=== PATIENT | female | born 1935 | race Native Hawaiian/Other Pacific Islander ===

== ENCOUNTER → 2019-05-09 | Outpatient (CLI) | payer MEDICARE ==
--- NOTE | 2019-05-09 13:02 | CT ---
EXAMINATION TYPE: CT brain wo con DATE OF EXAM: 05/09/2019 HISTORY: Alzheimer's disease. Dimension for 5 years per patient with memory loss. CT DLP: 1183 mGycm. Automated Exposure Control for Dose Reduction was Utilized. TECHNIQUE: CT scan of the head is performed without contrast. COMPARISON: CT brain January 20, 2012 FINDINGS: There is no acute intracranial hemorrhage or midline shift identified. There is diffuse v entricular and sulcal prominence consistent with diffuse age-related cerebral atrophy. Atrophy slight ly more prominent over the bilateral frontal and temporal lobes. There is low-attenuation in the mallorie ventricular white matter consistent with chronic small vessel ischemic change. Scleral calcification both globes are seen. Visualized paranasal sinuses are clear. IMPRESSION: No acute intracranial hemorrhage or midline shift. There is mild to moderate diffuse ag e-related cerebral atrophy slightly more prominent over bilateral frontal and temporal lobes and mode rate chronic small vessel ischemic change identified. There is progression from 2012 CT noted.
== END | disposition home or self-care (01) ==
LOC: RADCTMAIN 12:04
PROVIDERS: ATTEND Internal Medicine
DX: G31.9 Degenerative disease of nervous system, unspecified (principal); I67.82 Cerebral ischemia; G30.9 Alzheimer's disease, unspecified
CPT/HCPCS: 70450

== ENCOUNTER → 2019-05-13 | Outpatient (CLI) | payer MEDICARE ==
--- NOTE | 2019-05-13 13:35 | XR ---
EXAMINATION TYPE: XR chest 2V DATE OF EXAM: 05/13/2019 COMPARISON: 03/26/2010 INDICATION: Z 11.1 TECHNIQUE: Frontal and lateral views of the chest are obtained. FINDINGS: The heart size is normal. The pulmonary vasculature is normal. The lungs are clear. Minimal scarring at the upper outer lungs is not excluded IMPRESSION: 1. No acute pulmonary process. 2. No significant interval change.
== END ==
LOC: EEVIPCON 12:35 → RADXRMAIN 12:35
PROVIDERS: ATTEND Internal Medicine
DX: Z11.1 Encounter for screening for respiratory tuberculosis (principal)
CPT/HCPCS: 71046

== ENCOUNTER 2021-03-19 18:10 | Emergency (ER) | payer MEDICARE, OTHER ==
[2021-03-19 18:44] VITALS: TEMP 98.1
--- NOTE | 2021-03-19 20:02 | ED ---
Fall HPI - General Chief Complaint: Fall Stated Complaint: Fall Time Seen by Provider: 03/19/21 18:39 Source: EMS Mode of arrival: EMS - History of Present Illness Initial Comments: 86-year-old female with history of Alzheimer's and nonverbal presents to the emergency department with a chief complaint of a fall. This was a witnessed fall when the patient was pushing a door, tripped and fell to the ground hitting her head. Daughter is also present in the room to answer additional questions. She reports there was no loss of consciousness and the patient suffered multiple abrasions to the face. States her tetanus is up-to-date. Daughter denies any other areas of trauma. Daughter states the patient is otherwise at her baseline - Related Data Home Medications Medication Instructions Recorded Confirmed Acetaminophen Tab [Tylenol] 650 mg PO Q8H PRN 03/19/21 03/19/21 Docusate [Colace] 100 mg PO DAILY PRN 03/19/21 03/19/21 Loperamide [Imodium] 2 mg PO Q12H PRN 03/19/21 03/19/21 Losartan Potassium 100 mg PO DAILY 03/19/21 03/19/21 Magnesium Hydroxide [Milk of 7,200 mg PO Q48H PRN 03/19/21 03/19/21 Magnesia Concentrate] Multivitamins, Thera [Multivitamin 1 tab PO DAILY 03/19/21 03/19/21 (formulary)] Na Phos,M-B/Na Phos,Di-Ba [Fleet 133 ml RECTAL DAILY PRN 03/19/21 03/19/21 Adult] QUEtiapine [SEROquel] 25 mg PO HS 03/19/21 03/19/21 Rivastigmine 4.6MG/24Hr Patch 1 patch TRANSDERM Q24HR 03/19/21 03/19/21 [Exelon 4.6MG/24Hr Patch] bisacodyL [Dulcolax] 5 mg PO BID PRN 03/19/21 03/19/21 bisacodyL [Dulcolax] 10 mg RECTAL DAILY PRN 03/19/21 03/19/21 Allergies Allergy/AdvReac Type Severity Reaction Status Date / Time Penicillins Allergy Unknown Verified 03/19/21 19:50 tetanus toxoid, adsorbed Allergy Unknown Verified 03/19/21 19:50 Tetanus Vaccines and Toxoid Allergy Unknown Verified 03/19/21 19:50 [Tetanus Vaccines & Toxoid] Review of Systems ROS Statement: Those systems with pertinent positive or pertinent negative responses have been documented in the HPI. ROS Other: All systems not noted in ROS Statement are negative. Past Medical History Past Medical History: Hypertension History of Any Multi-Drug Resistant Organisms: None Reported Past Surgical History: Cholecystectomy, Hysterectomy Past Psychological History: No Psychological Hx Reported Smoking Status: Never smoker Past Alcohol Use History: None Reported Past Drug Use History: None Reported General Exam Limitations: altered mental status, physical limitation General appearance: in no apparent distress Head exam: Present: atraumatic, normocephalic. Absent: normal inspection (Multiple abrasions to the face), other (Negative Lux sign, raccoon eyes, hemotympanum) Eye exam: Present: normal appearance, PERRL, EOMI Pupils: Present: normal accommodation ENT exam: Present: normal exam, normal oropharynx, mucous membranes moist Neck exam: Present: normal inspection, full ROM. Absent: tenderness, lymphadenopathy Respiratory exam: Present: normal lung sounds bilaterally. Absent: respiratory distress, wheezes Cardiovascular Exam: Present: regular rate, normal rhythm, normal heart sounds GI/Abdominal exam: Present: soft. Absent: distended, tenderness Extremities exam: Present: normal inspection, full ROM, normal capillary refill Back exam: Present: normal inspection, full ROM Neurological exam: Present: alert Skin exam: Present: warm, dry, intact, normal color, abrasion Course Vital Signs 03/19/21 03/19/21 18:16 20:45 Temperature 98.1 F Pulse Rate 75 62 Respiratory 20 18 Rate Blood Pressure 146/72 148/65 O2 Sat by Pulse 96 97 Oximetry Medical Decision Making - Medical Decision Making 86-year-old female presents to emergency department with the chief complaint of fall. Patient nonverbal secondary to Alzheimer's. Abrasion sites were cleaned and bacitracin was applied. CT of the brain and C-spine obtained shows no new acute findings. I did recommend follow-up for an MRI of the brain. Patient possibly secondary to concussion from fall. Daughter advised to follow with the primary care physician. Strict return parameters with a discussed with daughter who is understanding and agreeable. Case discussed with Dr. Rivas. Disposition Clinical Impression: Fall, Scalp contusion, Facial abrasion Disposition: HOME SELF-CARE Condition: Stable Instructions (If sedation given, give patient instructions): Abrasion (ED) Additional Instructions: Please return to the Emergency Department if symptoms worsen or any other concerns. Is patient prescribed a controlled substance at d/c from ED?: No Referrals: Silverio Lui MD [Primary Care Provider] - 1-2 days Time of Disposition: 20:40
--- NOTE | 2021-03-19 20:29 | CT ---
EXAMINATION TYPE: CT brain marielena lujan DATE OF EXAM: 03/19/2021 COMPARISON: Brain 05/09/2019 HISTORY: 86-year-old female with fall , head injury, pain CT DLP: 1277.2 mGycm Automated exposure control for dose reduction was used. Technique: Examination of the head was done in axial plane without intravenous contrast. Coronal and sagittal reconstructions performed. CT of the cervical spine was obtained in axial plane without intravenous injection of contrast mater ial. Coronal and sagittal reformatted images were obtained from the axial views for evaluation of f ractures, spinal alignment and canal. FINDINGS: Head: There is no evidence of acute intracranial hemorrhage, acute ischemic changes, mass, mass-effect, or extra-axial fluid collection. There is no effacement of cerebral sulci or basal subarachnoid cister ns. There is no hydrocephalus. There is no midline shift. Borges-white matter distinction is preserv ed. Slightly bulbous appearance to the region of the left M1 bifurcation at 7 mm, possible partial volume averaging, axial image 21. Mild generalized supratentorial volume loss. Prominent artifacts extend a cross the calvarium and brain parenchyma. Moderate patchy and confluent white matter hypodensities in both cerebral hemispheres. Partially empty sella. Moderate generalized cerebral cortical atrophy. Anterior right frontal scalp contusion and right periorbital contusion. No underlying calvarial fract ure. Orbits and globes appear intact allowing for some motion. Paranasal sinuses and mastoid air cell s well pneumatized. Cervical spine: Marked accentuation of the patient's cervical lordosis. Grade 1 retrolisthesis C2-C3. Facet and uncov ertebral joint arthropathy. Fragmented spur left C5 inferior facet with corticated margins compatible with old injury. Grade 1 anterolisthesis C7-T1. Mild anterior wedging T7 probably chronic given the lack of any surrounding soft tissue swelling. Thi s should be correlated clinically for any focal pain at this level. No acute fractures otherwise seen of the cervical spine. Sagittal and coronal reformatted images confirm above findings. COMBINED IMPRESSION: 1. Anterior right frontal scalp contusion and right periorbital soft tissue contusion. There is moder ate cerebral atrophy and patchy and confluent burden of chronic small vessel ischemic disease. No acu te intracranial abnormality seen. 2. Marked accentuated cervical lordosis. Degenerative grade 1 spondylolisthesis C2-C3 and C7-T1. 3. Mild anterior wedging of T7 probably chronic given the lack of any surrounding soft tissue swellin g. This should be correlated clinically for any focal pain at this level. 4. A 7 mm bulbous appearance to the region of the left M1 bifurcation, axial image 21, could represen t partial volume averaging. A saccular aneurysm here is difficult to entirely exclude. Outpatient [facility] [place] or [facility]A follow-up can be performed.
[2021-03-19 20:45] VITALS: BP 148/65; PULSE 62; RESP 18
[2021-03-19] MEDS ORDERED: BACITRACIN OINT 1 EACH PACKET TOPICAL ONE (20:52)
== END 2021-03-19 21:25 | disposition home or self-care (01) ==
LOC: EC 18:10
DX: S00.03XA Contusion of scalp, initial encounter (principal); S00.81XA Abrasion of other part of head, initial encounter; I10 Essential (primary) hypertension; G30.9 Alzheimer's disease, unspecified; F02.80 Dementia in other diseases classified elsewhere, unspecified severity, without behavioral disturbance, psychotic disturbance, mood disturbance, and anxiety; Z79.899 Other long term (current) drug therapy; Z88.0 Allergy status to penicillin; W01.0XXA Fall on same level from slipping, tripping and stumbling without subsequent striking against object, initial encounter
CPT/HCPCS: 70450; 72125; 99284